=== PATIENT | male | born 2005 | race Two or more races ===

== ENCOUNTER 2024-02-18 20:03 | Emergency (ER) | payer MEDICAID, OTHER ==
[~2024-02-18] VITALS: Ht 167.6 cm; Wt 55.0 kg
[2024-02-18] MEDS: DexAMETHasone SOD PHOS 10MG/1ML VIAL INJ IM ONE (22:29)
[2024-02-18] MEDS: diphenhdrAMINE HCL 25 MG CAP PO ONE (22:29)
[2024-02-18 22:33] VITALS: PULSE 76; RESP 16; O2SAT 99
--- NOTE | 2024-02-18 23:06 | ED.PDOC ---
HPI Allergic reaction HPI Comments This patient is a 18-year-old male who arrives to the ED today for evaluation of a rash on his arms, chest and back status post eating shampoo approximately 1 hour prior to arrival. Patient states he has never had shrimp before. Patient states that after eating the shrimp the rash appeared and is itchy. Patient denies any oral or airway compromise. Patient denies any history of allergic responses to food or other items. Vital signs were stable on arrival. Chief Complaint: Allergic Reaction Time Seen by MD: 20:23 Reviewed Notes: Nurses Notes Information Source: Patient Mode of Arrival: Ambulatory Severity: Moderate Rash: Moderate SOB: None Difficulty swallowing: None Pruritus: Moderate Timing: Hours Duration: Since onset Prehospital treatment: None Location: Abdomen, Arm, Back Exposed to: Food Developed: Pruritus, Rash History of: None Modyifying Factors: Not Used Past Medical History PAST MEDICAL HISTORY: Denies Surgical History: Denies all surgeries Family History Family History: Reviewed,noncontributory to illness, No family hx of Cancer, No family hx of DM, No family hx of Heart elis, No family hx of HTN, No family hx ofKidney elis, No family hx of Liver elis, No family hx of Lung elis, No family hx of Stroke Social History Smoker: Non-Smoker Alcohol: Denies ETOH Use Drugs: Denies Drug Use Lives In: Home Constitutional: denies: chills, diaphoresis, fatigue, fever, malaise, sweats, weakness, others EENTM: denies: blurred vision, double vision, ear bleeding, ear discharge, ear drainage, ear pain, ear ringing, eye pain, eye redness, hearing loss, mouth pain, mouth swelling, nasal discharge, nose bleeding, nose congestion, nose pain, photophobia, tearing, throat pain, throat swelling, voice changes, others Respiratory: denies: cough, hemoptysis, orthopnea, SOB at rest, shortness of breath, SOB with excertion, stridor, wheezing, others Cardiovascular: denies: chest pain, dizzy spells, diaphoresis, Dyspnea on exer tion, edema, irregular heart beat, left arm pain, lightheadedness, palpitations, PND, syncope, others Gastrointestinal: denies: abdomen distended, abdominal pain, blood streaked bowels, constipated, diarrhea, dysphagia, difficulty swallowing, hematemesis, melena, nausea, poor appetite, poor fluid intake, rectal bleeding, rectal pain, vomiting, others Genitourinary: denies: burning, dysuria, flank pain, frequency, hematuria, incontinence, penile discharge, penile sore, pain, testicle pain, testicle swelling, urgency, others Neurological: denies: dizziness, fainting, headache, left sided numbness, left sided weakness, numbness, paresthesia, pre-existing deficit, right sided numbness, right sided weakness, seizure, speech problems, tingling, tremors, weakness, others Musculoskeletal: denies: back pain, gout, joint pain, joint swelling, muscle pain, muscle stiffness, neck pain, others Integumetry: reports: rash (Chest, back and arms); denies: bruises, change in color, change in hair/nails, dryness, laceration, lesions, lumps, wounds, others Allergic/Immunocompromised: denies: Difficulty Healing, Frequent Infections, Hives, Itching, others Hematologic/Lymphatic: denies: anemia, blood clots, easy bleeding, easy bruising, swollen glands, others Endocrine: denies: excessive hunger, excessive sweating, excessive thirst, excessive urination, flushing, intolerance to cold, intolerance to heat, unexplained weight gain, unexplained weight loss, others Psychiatric: denies: anxiety, bipolar disorder, depression, hopeless, panic disorder, schizophrenia, sleepless, suicidal, others Physical Exam General Appearance: Moderate Distress ([id number] discomfort due to the itchiness related to his rash.), Normal HEENT: Normal ENT Inspection, Pharynx Normal, TMs Normal Neck: Full Range of Motion, Non-Tender, Normal, Normal Inspection Respiratory: Chest Non-Tender, Lungs Clear, No Accessory Muscle Use, No Respiratory Distress, Normal Breath Sounds Cardiovascular: No Edema, No JVD, No Murmur, No Gallop, Normal Peripheral Pulses, Regular Rate/Rhythm Breast Exam: Deferred Gastrointestinal: No Organomegaly, Non Tender, No Pulsatile Mass, Normal Bowel Sounds, Soft Genitalia: Deferred Pelvic: Deferred Rectal: Deferred Extremities: No calf tenderness, Normal capillary refill, Normal inspection, Normal range of motion, Non-tender, No pedal edema Neurologic: Alert, fire manager II-XII nml as Tested, No Motor Deficits, Normal Affect, Normal Mood, No Sensory Deficits Cerebellar Function: Normal Reflexes: Normal Skin: Rash (Patient reveals a resolving rash to his chest back and arms. Minor erythema appreciated.) Lymphatic: No Adenopathy Was a procedure done? Was a procedure done?: No Differential diagnosis (all) Differential Diagnosis: Anaphylaxis, Angioedema, Bronchospasm, Drug Reaction, Other (Food allergy) X-Ray, Labs, Meds, VS Vital Signs Date Time Temp Pulse Resp B/P (MAP) Pulse Ox O2 Delivery O2 Flow Rate FiO2 02/18/24 22:33 76 18 142/86 (104) 99 02/18/24 22:33 76 16 99 Room Air* 0 21 02/18/24 20:30 97.8 86 20 100/53 (69) 96 Current Medications Medications (Trade) Dose Ordered Sig/Evert Route Start Time Stop Time Status Last Admin Dexamethasone Sodium Phosphate (Decadron Injection) 10 mg ONCE ONCE IM 02/18/24 21:00 02/18/24 21:01 DC 02/18/24 22:29 Diphenhydramine HCl (Benadryl Capsule) 25 mg ONCE ONCE PO 02/18/24 21:00 02/18/24 21:01 DC 02/18/24 22:29 X-Ray, Labs, Meds, VS Comment Advised patient that it appears he suffered a [id number] food allergy due to his shrimp consumption. Advised patient to not consume sharp in the future and additionally, follow up with his primary care provider for discussions related to today's visit. Time of 1ST Reevaluation: 23:05 Reevaluation 1ST: Improved Consultation: PCP Patient Education/Counseling: Diagnosis, Treatment Family Education/Counseling: Diagnosis, Treatment Departure 1 Departure Time of Disposition: 23:05 Impression: Primary Impression: Food allergy Disposition: 01 HOME / SELF CARE / HOMELESS Condition: Stable Additional Instructions: Advised follow up with the primary care provider for discussions related to today's events. Discharged With: Self, Friend Critical Care Note Critical Care Time?: No Stability Stability form required: No Heart Score Heart Score: Heart Score Response (Comments) Value History N/A 0 EKG N/A 0 Age N/A 0 Risk Factors N/A 0 Troponin N/A 0 Total 0 JUAN SHIELDS PAC Feb 18, 2024 23:06
[2024-02-18 23:42] VITALS: BP 110/56; PULSE 85; RESP 16; O2SAT 99
== END 2024-02-18 23:50 | disposition home or self-care (01) ==
LOC: ER 20:03
DX: T78.1XXA Other adverse food reactions, not elsewhere classified, initial encounter (principal); L29.9 Pruritus, unspecified; X58.XXXA Exposure to other specified factors, initial encounter
CPT/HCPCS: 96372; 99283; J1100